=== PATIENT | male | born 1975 | race Caucasian/White ===

== ENCOUNTER → 2016-05-01 | Outpatient (CLI) | payer OTHER ==
--- NOTE | 2016-05-01 16:30 | DX ---
Right Third Finger, Three Views History: Pain. Findings: A 3- x 1-mm calcific density is seen dorsal to the 3rd proximal phalanx at the distal meta physis. Possible avulsion fracture or capsular calcification is seen at the volar aspect of the dist al metaphysis of the proximal phalanx. No significant joint narrowing or periarticular erosion. Nor mal underlying mineralization. No other significant osseous abnormality. Impression: Possible capsular calcification or avulsive injury at the volar aspect of the distal 3rd proximal phalanx. Calcification dorsal to the distal 3rd proximal phalanx, which could be from prio r trauma or a radiopaque foreign body.
== END ==
LOC: FIMAGING 15:20
PROVIDERS: ATTEND Family Medicine
DX: S69.91XA Unspecified injury of right wrist, hand and finger(s), initial encounter (principal)